=== PATIENT | female | born 1960 | race Caucasian/White ===

== ENCOUNTER 2024-04-14 09:48 | Outpatient (CLI) | payer MEDICARE, SELFPAY | END 2024-04-14 09:49 | disposition home or self-care (01) | PROVIDERS: Visit Provider Registered Nurse | DX: R10.11 Right upper quadrant pain (principal); R82.90 Unspecified abnormal findings in urine | CPT/HCPCS: 80053; 83690; 87086 ==

== ENCOUNTER 2024-04-21 16:40 | Emergency (ER) | payer MEDICARE, SELFPAY ==
[2024-04-21 16:44] VITALS: BP 153/88; PULSE 76; RESP 18; TEMP 36.4; O2SAT 99; BMI 24.7
--- NOTE | 2024-04-21 16:53 | ED.GENADULT ---
HPI - General Adult General Chief complaint: Abdominal Pain Stated complaint: abdominal pain Time Seen by Provider: 04/21/24 16:53 History of Present Illness HPI narrative: Patient reports being seen in clinic for right periumbilical pain. She states liver enzymes were elevated, and she is to have an ultrasound for this next week. Pain is worse today, feels full, nauseous and has gas. 63-year-old woman presenting to the emergency department with complaint of upper abdominal, right upper abdominal pain. Pain is escalated over the last day. She has been particularly gassy today. Had a normal bowel movement today not affecting her discomfort would not consider herself constipated. She has been nauseated. Pain is sharp component and colicky. No fever but is subtly under blankets in admittedly a chilly room. This is been going on for couple of months. Does note history of colitis but is not acting up. She says this pain is different. Two years ago had an ultrasound with persistently elevated liver enzymes apparently noted a common bile duct that was somewhat dilated; again post cholecystectomy which she says was not with stones. Various autoimmune diseases in the family including a sister with primary biliary cholangitis. Did try treatment with Tums without effect. Notation below from last week's clinic visit Naomi Saleem is a 63 y.o female who presents to clinic today for evaluation of abdominal pain. This pain is sharp in nature, typically is located near her naval and radiates to her right upper quadrant. It started about three months ago and initially was intermittent and brief in nature. But for the past 4-6 weeks it has become constant. Nothing seems to make it worse, and nothing resolves it. She has hx significant for colitis which she manages with diet alone. She is gluten free. Has had cholecystectomy in the past, 1986. No fever, no vomiting or nausea, no diarrhea, no blood in the stool. Last colonoscopy was in 2019, that is when she was diagnosed with colitis. She had an ultrasound done in 2021 through [facility] because of consistently elevated liver enzymes, only abnormality was a dilated common bile duct. Sister has primary biliary cholangitis. Related Data Home Medications ?Medication ?Instructions ?Recorded ?Confirmed Lactobacillus rhamnosus GG 20 cell PO 01/27/24 04/14/24 billion cell capsule (Probiotic Digestive Care) ascorbic acid (vitamin C) 500 mg 500 mg PO Q12H 01/27/24 04/14/24 capsule,extended release calcium citrate 300 mg PO BID 01/27/24 04/14/24 cholecalciferol (vitamin D3) 125 125 mcg PO TID 01/27/24 04/14/24 mcg (5,000 unit) capsule duloxetine 60 mg capsule,delayed 60 mg PO QDAY 01/27/24 04/14/24 release multivitamin 1 tab PO QAM 01/27/24 04/14/24 psyllium husk 0.4 gram capsule 0.4 g PO ONCE 01/27/24 04/14/24 (Metamucil) vitamin B complex (Vitamins B 1 cap PO QDAY 01/27/24 04/14/24 Complex capsule) Allergies Allergy/AdvReac Type Severity Reaction Status Date / Time adhesive Allergy Intermediate Rash Verified 04/14/24 09:13 latex Allergy Intermediate Rash Verified 04/14/24 09:13 gluten AdvReac Mild Gastrointestinal Verified 04/14/24 09:13 Upset Review of Systems Status of ROS: Reports: 6 or more systems reviewed and unremarkable except as noted in History and below [facility] Medical History Femur fracture ?S72.90XA - Unspecified fracture of unspecified femur, initial encounter for closed fracture (ICD-10) Surgical History History of cholecystectomy ?Z90.49 - Acquired absence of other specified parts of digestive tract (ICD-10) Total knee replacement status ?Z96.659 - Presence of unspecified artificial knee joint (ICD-10) H/O rotator cuff surgery ?Z98.890 - Other specified postprocedural states (ICD-10) Personal history of spine surgery ?Z98.890 - Other specified postprocedural states (ICD-10) Family History Brother Colon cancer Malignant neoplasm of pancreas metastatic to liver Sister High cholesterol High blood pressure Father Cardiovascular disease Mother Cardiovascular disease Social History Narrative: Patient is retired, 12 grade level education, exercises regularly, no E cigarette use, no tobacco use, no alcohol use, no recreational drug use, no concerns about safety or abuse Smoking Status: Never smoker How often do you have a drink containing alcohol: never AUDIT-C Alcohol total score: 0 Non-prescribed substance use: denies use Exam Narrative: Exam Narrative: Appears generally uncomfortable med. And grimacing. Huddled under a blanket as well. Breathing easily and lungs are clear. Heart in regular rate and rhythm. Epigastric pain to palpation. Not really in the right upper quadrant. Abdomen otherwise soft and mildly uncomfortable. No peritoneal signs. Const: Vital Signs, click to edit/add: Vital Signs - 24 hr 04/21/24 16:44 04/21/24 18:12 04/21/24 18:16 Temperature 97.5 F L 97.5 F L Pulse Rate [Pulse Oximeter] 76 69 Respiratory Rate 18 18 Blood Pressure [Ri ght Upper Arm] 153/88 H 142/87 H Pulse Oximetry 99 98 98 Oxygen Delivery Me thod Room Air Room Air Documenting provider has reviewed patient's vital signs: yes Course Vital Signs Vital signs: Initial Vital Signs Temperature 97.5 F L 04/21/24 16:44 Temperature Source Temporal Artery Scan 04/21/24 16:44 Pulse Rate 76 04/21/24 16:44 Respiratory Rate 18 04/21/24 16:44 Blood Pressure 153/88 H 04/21/24 16:44 Blood Pressure Mean 109 H 04/21/24 16:44 Pulse Oximetry 99 04/21/24 16:44 Oxygen Delivery Method Room Air 04/21/24 16:44 Vital Signs Temperature 97.5 F L 04/21/24 16:44 Pulse Rate 76 04/21/24 16:44 Respiratory Rate 18 04/21/24 16:44 Blood Pressure 153/88 H 04/21/24 16:44 Pulse Oximetry 99 04/21/24 16:44 Oxygen Delivery Method Room Air 04/21/24 16:44 Temperature 97.5 F L 04/21/24 18:16 Pulse Rate 87 04/21/24 20:40 Respiratory Rate 16 04/21/24 20:40 Blood Pressure 123/78 04/21/24 20:40 Pulse Oximetry 97 04/21/24 20:40 Oxygen Delivery Method Room Air 04/21/24 20:40 Medications Administered Medications: Discontinued Medications Generic Name Dose Route Start Last Admin Trade Name Freq PRN Reason Stop Dose Admin Hydromorphone HCl 0.5 mg 04/21/24 18:43 04/21/24 18:53 Hydromorphone 0.5 Mg/0.5 Ml Inj IVP 04/21/24 18:44 0.5 mg ONCE ONE Administration Hyoscyamine 0.25 mg 04/21/24 17:02 04/21/24 17:24 Hyoscyamine Sulfate 0.125 Mg Tab SUBLINGUAL 04/21/24 17:03 0.25 mg ONCE ONE Administration Sodium Chloride 500 mls @ 1,000 mls/hr 04/21/24 17:02 04/21/24 19:20 0.9 % Sodium Chloride 500 Ml IV 04/21/24 17:31 Infused .Q30M ONE Infusion Ketorolac Tromethamine 30 mg 04/21/24 17:02 04/21/24 17:25 Ketorolac 30 Mg/Ml Inj IVP 04/21/24 17:03 30 mg ONCE ONE Administration Lidocaine/Aluminum/Magnesium/Simeth 30 ml 04/21/24 18:53 04/21/24 19:02 Gi Cocktail (Visc Lido/Antacid) 30 Ml PO 04/21/24 18:54 30 ml ONCE ONE Administration Morphine Sulfate 4 mg 04/21/24 17:02 04/21/24 17:26 Morphine 4 Mg/Ml Inj IVP 04/21/24 17:03 4 mg ONCE ONE Administration Medical Decision Making MDM Narrative Medical decision making narrative: I suspect this is more related involving enteritis possibly. Suspect intestinal colic. Possibly gastritis. Certainly has been present in the community. However will check labs given history and am able to do an ultrasound as was anticipating 1 week anyway. Will treat pain and nausea. Starting with morphine, ketorolac and hyoscyamine normal saline Discussed findings ultrasound with auto electrical technician. Markedly dilated common bile duct and absent gallbladder as expected. Uncertain what prior size of CBD has been. Technique: Multiple transverse and longitudinal sonographic grayscale images of the right upper quadrant of the abdomen were obtained, supplemented with color, power, and spectral Doppler imaging. Comparison: None. Findings: Pancreas: Visualized portions normal. Liver length: 15.4 cm. Liver appearance: Nodular contour of the liver. No biliary ductal dilation. Portal vein: Patent, hepatopetal flow. CBD: 1.6 cm. Gallbladder: Status post cholecystectomy. Right kidney length: 11.7 cm. Right kidney appearance: Normal. Impression: 1. Dilated common bile duct. Consider correlation with bilirubin levels to assess for obstruction and further evaluation with MRCP as clinically indicated. 2. Status post cholecystectomy. 3. Nodular contour of the liver, which may represent cirrhosis. Think it would be good to assess for a constipation or bowel pattern perhaps for excessive gas as well considering with intermittent colicky pain and normal labs. Unlikely duct stone with normal bili Requesting abdominal x-ray. I independently did review these images without concerning air-fluid levels and maybe a little extra stool. Technique: Abdomen 3 view. Comparison: None. Findings: Bowel: Bowel pattern is normal. Mildly above average colonic stool volume, can be seen the setting of constipation. No air-fluid levels on upright images. Other: No sign of free air. No sign of soft tissue mass. No suspicious calcifications. Left femoral intramedullary stephanie and fixation screw. Otherwise, osseous structures are unremarkable for age. Impression: Unremarkable abdomen. Required dosing of more pain medication I did discuss this case with General surgery on-call. Discussed potential ampullary spasms. Recommending GI follow-up There may be some general inflammation and IBS as well with constipation See patient discharge plan for further discussion Focus on hydration. Would consider taking even 3 doses of MiraLax daily each in at least 8 oz of liquid. Adjust then to stool consistency and continue for 1-2 weeks. If you might experience particularly hard stools, would also consider placement of an enema and repeating in an hour if no good result. Otherwise bowel cleanout can usually be accomplished with magnesium citrate. Consider taking famotidine 20 mg daily to twice daily for 2 weeks for acid reduction. It is a little unclear to me as to what might exactly be causing your pain. You may have got a gastrointestinal bug on top of underlying pain. Constipation may be playing a role. Inflammation of your stomach may be playing a role. It may be that you are experiencing some spasms of the Ampulla of Vater for example. It does seem at this point it would be good for you to have an appointment with Gastroenterology. This may include an upper endoscopy scope? And would review other findings to date. Sending you with copies of your images today on a disc. Please contact your primary care provider to arrange this follow-up. Prescribing some opiate pain medication in the form of Clermont from [facility]. Also Zofran for nausea. Can otherwise take up to 1000 mg of acetaminophen per dose. Remember that each tablet of Clermont contains 325 mg of acetaminophen. Medical Records Medical records reviewed: Yes I reviewed the patient's medical records Lab Data Lab results reviewed: Yes I reviewed the patient's lab results Labs: Lab Results 04/21/24 04/21/24 Range/Units 17:22 18:00 WBC 4.52 (4.50-11.00) K/uL RBC 4.44 (4.00-5.20) m/uL Hgb 13.6 (12.0-16.0) gm/dL Hct 41.9 (33.0-51.0) % MCV 94 (80-100) fL MCH 31 (26-34) pg MCHC 33 (32-36) gm/dL RDW Coeff of Cristina 12.3 (11.5-15.5) % Plt Count 269 (140-440) K/uL Neut % (Auto) 53.2 (42.0-72.0) % Lymph % (Auto) 36.1 (20-44) % Tama % (Auto) 7.7 (0.0-11.0) % Eos % (Auto) 2.4 (0.0-7.0) % Baso % (Auto) 0.2 (0.0-3.0) % Neut # (Auto) 2.40 (1.7-7.0) K/uL Lymph # (Auto) 1.63 (0.90-2.90) K/uL Tama # (Auto) 0.30 (0.00-0.90) K/UL Eos # (Auto) 0.11 (0.00-0.50) K/uL Baso # (Auto) 0.01 (0.00-0.30) K/uL Abs Immat Gran (auto) 0.02 (0.00-0.30) K/uL Imm/Tot Granulo (auto) 0.4 % ESR 12 (2-20) mm/hr Sodium 141 (135-149) mmol/L Potassium 4.4 (3.6-5.1) mmol/L Chloride 105 (96-114) mmol/L Carbon Dioxide 31 (20-32) mmol/L Anion Gap 5 L (7-15) mEq/L BUN 23 (7-30) mg/dL Creatinine 0.8 (0.5-1.5) mg/dL Estimated Creat Clear 60.65 Estimated GFR 82 ml/min Glucose 117 H (60-115) mg/dL Calcium 10.4 (8.4-10.6) mg/dL Total Bilirubin 0.2 (0.1-1.5) mg/dL Direct Bilirubin 0.0 (0.0-0.5) mg/dL AST 31 (12-35) U/L ALT 21 (4-35) U/L Alkaline Phosphatase 99 (40-150) U/L C-Reactive Protein < 0.5 L (0.5-1.0) mg/dL Total Protein 6.7 (6.0-8.3) g/dL Albumin 4.1 (3.3-5.0) g/dL Lipase 132 (23-300) U/L Lab Acknowledgement Test Added Discharge Plan Discharge Clinical Impression: Epigastric pain, Constipation Patient Disposition: Home w/ Parent or Adult Condition: Improved Additional Instructions: Focus on hydration. Would consider taking even 3 doses of MiraLax daily each in at least 8 oz of liquid. Adjust then to stool consistency and continue for 1-2 weeks. If you might experience particularly hard stools, would also consider placement of an enema and repeating in an hour if no good result. Otherwise bowel cleanout can usually be accomplished with magnesium citrate. Consider taking famotidine 20 mg daily to twice daily for 2 weeks for acid reduction. It is a little unclear to me as to what might exactly be causing your pain. You may have got a gastrointestinal bug on top of underlying pain. Constipation may be playing a role. Inflammation of your stomach may be playing a role. It may be that you are experiencing some spasms of the Ampulla of Vater for example. It does seem at this point it would be good for you to have an appointment with Gastroenterology. This may include an upper endoscopy scope? And would review other findings to date. Sending you with copies of your images today on a disc. Please contact your primary care provider to arrange this follow-up. Prescribing some opiate pain medication in the form of Clermont from [facility]. Also Zofran for nausea. Can otherwise take up to 1000 mg of acetaminophen per dose. Remember that each tablet of Clermont contains 325 mg of acetaminophen. Prescriptions: No Action multivitamin Tablet 1 tab PO QAM duloxetine 60 mg capsule,delayed release(DR/EC) 60 mg PO QDAY vitamin B complex [Vitamins B Complex] Capsule 1 cap PO QDAY cholecalciferol (vitamin D3) 125 mcg (5,000 unit) capsule 125 mcg PO TID calcium citrate 200 mg (950 mg) tablet 300 mg PO BID Probiotic Digestive Care 20 billion cell capsule PO ascorbic acid (vitamin C) 500 mg capsule, extended release 500 mg PO Q12H psyllium husk [Metamucil] 0.4 gram capsule 0.4 g PO ONCE Follow Up/Referrals: Provider,Not a Local [Primary Care Provider] - Stand Alone Forms: [email or web address] Info Instructions
--- NOTE | 2024-04-21 17:04 | CRLHL7_ITS ---
For Patients: As a result of the Century Cures Act, medical imaging exams and procedure reports are released immediately into your electronic medical record. You may view this report before your referring provider. If you have questions, please contact your health care provider. Indication: chronically elevated liver enzymes and epigastric pain Technique: Multiple transverse and longitudinal sonographic grayscale images of the right upper quadrant of the abdomen were obtained, supplemented with color, power, and spectral Doppler imaging. Comparison: None. Findings: Pancreas: Visualized portions normal. Liver length: 15.4 cm. Liver appearance: Nodular contour of the liver. No biliary ductal dilation. Portal vein: Patent, hepatopetal flow. CBD: 1.6 cm. Gallbladder: Status post cholecystectomy. Right kidney length: 11.7 cm. Right kidney appearance: Normal. Impression: 1. Dilated common bile duct. Consider correlation with bilirubin levels to assess for obstruction and further evaluation with MRCP as clinically indicated. 2. Status post cholecystectomy. 3. Nodular contour of the liver, which may represent cirrhosis. Dictated by Bartolome Pandey MD @ 04/21/2024 6:35:17 PM (Electronically Signed)
[2024-04-21] MEDS: HYOSCYAMINE SULFATE 0.125 MG TAB 0.25 MG SUBLINGUAL (17:24)
[2024-04-21] MEDS: KETOROLAC 30 MG/ML inj IVP (17:25)
[2024-04-21] MEDS: MORPHINE 4 MG/ML INJ IVP (17:26)
[2024-04-21 17:41] LABS: Basophils Absolute Auto 0.01 K/uL (0.00-0.30); Basophils Percent Auto 0.2 % (0.0-3.0); Eosinophils Absolute Auto 0.11 K/uL (0.00-0.50); Eosinophils Percent Auto 2.4 % (0.0-7.0); Hematocrit 41.9 % (33.0-51.0); Hemoglobin* 13.6 gm/dL (12.0-16.0); Immature Granulocytes Abs Auto 0.02 K/uL (0.00-0.30); Immature Granulocytes Pct Auto 0.4 %; Lymphocytes Absolute Auto 1.63 K/uL (0.90-2.90); Lymphocytes Percent Auto 36.1 % (20-44); Mean Corpuscular HGB Conc 33 gm/dL (32-36); Mean Corpuscular Hemoglobin 31 pg (26-34); Mean Corpuscular Volume 94 fL (80-100); Monocytes Percent Auto 7.7 % (0.0-11.0); Neutrophils Percent Auto 53.2 % (42.0-72.0); Platelet Count* 269 K/uL (140-440); RDW Coefficient of Variation % 12.3 % (11.5-15.5); Red Blood Count 4.44 m/uL (4.00-5.20); White Blood Count* 4.52 K/uL (4.50-11.00)
[2024-04-21 17:44] LABS: Slide Review Reflex No
[2024-04-21 18:00] LABS: Albumin* 4.1 g/dL (3.3-5.0); Chloride* 105 mmol/L (96-114)
[2024-04-21 18:01] LABS: Potassium* 4.4 mmol/L (3.6-5.1); Sodium* 141 mmol/L (135-149)
[2024-04-21 18:03] LABS: Creatinine* 0.8 mg/dL (0.5-1.5); Est. Creatinine Clearance* 60.65; Estimated Glomerular Filt Rate 82 ml/min
[2024-04-21 18:04] LABS: Alanine Aminotransferase* 21 U/L (4-35); Alkaline Phosphatase* 99 U/L (40-150); Aspartate Amino Transferase* 31 U/L (12-35); Bilirubin Total* 0.2 mg/dL (0.1-1.5); Blood Urea Nitrogen* 23 mg/dL (7-30); Calcium* 10.4 mg/dL (8.4-10.6); Carbon Dioxide* 31 mmol/L (20-32); Glucose* 117 mg/dL (60-115); Total Protein* 6.7 g/dL (6.0-8.3)
[2024-04-21] MEDS: 0.9 % SODIUM CHLORIDE 500 ML 500 ML 1000 ML IV (18:10)
[2024-04-21 18:12] VITALS: O2SAT 98
[2024-04-21 18:16] VITALS: BP 142/87; PULSE 69; RESP 18; TEMP 36.4; O2SAT 98
--- NOTE | 2024-04-21 18:30 | CRLHL7_ITS ---
For Patients: As a result of the Century Cures Act, medical imaging exams and procedure reports are released immediately into your electronic medical record. You may view this report before your referring provider. If you have questions, please contact your health care provider. Indication: Abdomen pain. Technique: Abdomen 3 view. Comparison: None. Findings: Bowel: Bowel pattern is normal. Mildly above average colonic stool volume, can be seen the setting of constipation. No air-fluid levels on upright images. Other: No sign of free air. No sign of soft tissue mass. No suspicious calcifications. Left femoral intramedullary stephanie and fixation screw. Otherwise, osseous structures are unremarkable for age. Impression: Unremarkable abdomen. Dictated by Bean Mueller MD @ 04/21/2024 7:04:00 PM (Electronically Signed)
[2024-04-21 18:44] LABS: Anion Gap 5 mEq/L (7-15); C Reactive Protein* < 0.5 mg/dL (0.5-1.0)
[2024-04-21] MEDS: HYDROmorphone 0.5 mg/0.5 ml inj IVP (18:53)
[2024-04-21] MEDS: GI COCKTAIL (VISC LIDO/ANTACID) 30 ML PO (19:02)
[2024-04-21 19:05] LABS: Lipase* 132 U/L (23-300)
[2024-04-21 19:24] LABS: Erythrocyte SedimentationRate* 12 mm/hr (2-20)
[2024-04-21 20:40] VITALS: BP 123/78; PULSE 87; RESP 16; O2SAT 97
== END 2024-04-21 20:50 | disposition home or self-care (01) ==
PROVIDERS: Emergency Provider Family Medicine
DX: R10.13 Epigastric pain (principal); K59.00 Constipation, unspecified
CPT/HCPCS: 36415; 74019; 76705; 80048; 80076; 83690; 85025; 85651; 86140; 94761; 96374; 96375; 99284; A9270; J1171; J1885; J2270; J7030